=== PATIENT | male | born 1935 | race Caucasian/White ===

== ENCOUNTER 2018-06-20 07:14 | Day surgery (SDC) | payer MEDICARE, OTHER ==
[2018-06-20] MEDS ORDERED: SOD CHLORIDE 0.45% 1,000 ML IV (08:00)
[2018-06-20] MEDS ORDERED: DIPHENHYDRAMINE 50 MG CAP PO (08:00)
[2018-06-20] MEDS ORDERED: FAMOTIDINE 20 MG TAB PO (08:00)
[2018-06-20] MEDS ORDERED: DIAZEPAM 5 MG TAB PO (08:00)
[2018-06-20 08:23] LABS: ADD MAN DIFF? NO
[2018-06-20 08:27] LABS: BASOPHILS % 0.5 % (0.0-2.0); EOSINOPHILS # 0.5 10^3/ul (0.0-0.5); EOSINOPHILS % 7.7 % (0.0-7.0); HEMATOCRIT 45.4 % (42.0-52.0); HEMOGLOBIN 14.6 g/dl (14.0-18.0); LYMPHOCYTES # 1.3 10^3/ul (0.8-2.9); LYMPHOCYTES % 21.8 % (15.0-51.0); MEAN CORPUSCULAR HGB CONC 32.2 g/dl (32.0-37.0); MEAN CORPUSCULAR VOLUME 90.1 fl (82.0-101.0); MEAN PLATELET VOLUME 10.6 fl (7.4-10.4); MONOCYTE # 0.3 10^3/ul (0.3-0.9); MONOCYTES % 5.7 % (0.0-11.0); NEUTROPHIL # 3.8 10^3/ul (1.6-7.5); PLATELET COUNT 122 10^3/UL (140-415); POSITIVE DIFF @See below; RED BLOOD COUNT 5.04 10^6/ul (4.70-6.10)
[2018-06-20] MEDS ORDERED: HEPARIN 1000 UNITS/ML 10 ML INJ (08:34)
[2018-06-20] MEDS ORDERED: MIDAZOLAM 1 MG/ML 2 ML INJ (08:34)
[2018-06-20] MEDS ORDERED: FENTAnyl 50 MCG/ML VIAL (08:34)
[2018-06-20] MEDS ORDERED: IODIXANOL LOCM 100 ML BTL ×3 (08:34→10:29)
[2018-06-20] MEDS ORDERED: LIDOCAINE 2% (MDV) 20 ML INJ (08:34)
[2018-06-20] MEDS ORDERED: NITROGLYCERIN (IC) 100 MCG/ML INJ (08:34)
[2018-06-20] MEDS ORDERED: VERAPAMIL 5 MG INJ (08:35)
[2018-06-20 08:47] LABS: ANION GAP 7 (5-13); BLOOD UREA NITROGEN 19 mg/dl (7-20); CALCIUM 9.4 mg/dl (8.4-10.2); CARBON DIOXIDE 28 mmol/L (21-31); CHLORIDE 107 mmol/L (97-110); CREATININE 0.87 mg/dl (0.61-1.24); GLUCOSE 98 mg/dl (70-220); POTASSIUM 4.6 mmol/L (3.5-5.1); SODIUM 142 mmol/L (135-144)
[2018-06-20 09:06] LABS: INR 1.02; PROTIME 13.5 Sec (11.9-14.9); PT RATIO 1.1
[2018-06-20 09:07] LABS: PARTIAL THROMBOPLASTIN TIME 28.1 Sec (23.0-35.0)
[2018-06-20] MEDS ORDERED: SOD CHLORIDE 0.9% 1,000 ML IV (10:29)
[2018-06-20] MEDS ORDERED: AL HYDROX/MG HYDROX/SIMETH 30 ML CUP PO (10:30)
[2018-06-20] MEDS ORDERED: ONDANSETRON 4 MG INJ IV (10:30)
[2018-06-20] MEDS ORDERED: ACETAMINOPHEN 325 MG TAB PO (10:30)
[2018-06-20] MEDS ORDERED: morphine 2 MG INJ IV (10:30)
[2018-06-20] MEDS ORDERED: BENAZEPRIL 20 MG TAB PO (11:00)
== END 2018-06-20 14:05 | disposition home or self-care (01) ==
LOC: SDS 07:14
DX: I25.10 Atherosclerotic heart disease of native coronary artery without angina pectoris (principal); E78.5 Hyperlipidemia, unspecified; I10 Essential (primary) hypertension
CPT/HCPCS: 71045; 80048; 85025; 85610; 85730; 93005; 93459